=== PATIENT | female | born 1990 | race African-American/Black ===

== ENCOUNTER 2017-05-26 14:41 | Emergency (ER) | payer OTHER ==
[~2017-05-26 14:41] MED LIST: IBUP-232 PO; MACR100C2 PO
[2017-05-26 14:42] VITALS: BP 124/70; PULSE 94; RESP 16; TEMP 98.7; O2SAT 98
--- NOTE | 2017-05-26 15:23 | PD ---
HPI Chief Complaint: GI Complaint Time Seen by Provider: 15:00 Travel History International Travel<30 days: No Contact w/Intl Traveler<30days: No Traveled to known affect area: No History of Present Illness HPI 26-year-old A1 approximately 9 week female presents to the emergency room for evaluation of fatigue, dizziness, nausea, and vomiting for the past 2 weeks. Patient has had several positive home tests. Denies any fever, chills, upper respiratory symptoms, cramping, abdominal pain, vaginal discharge, or vaginal bleeding. She is not currently taking any medications. Denies any chronic medical conditions. PFSH Past Medical History Asthma: Yes Autoimmune Disease: No Blood Disorders: No Anxiety: No Depression: No Heart Rhythm Problems: No Cancer: No Cardiovascular Problems: No Chest Pain: No Cystic Fibrosis: No Diabetes: No Diminished Hearing: No Endocrine: No Gastrointestinal Disorders: No Genitourinary: No Headaches: Yes Hepatitis: No Hiatal Hernia: No Hypertension: No Immune Disorder: No Medical other: No Musculoskeletal: No Neurologic: Yes (MILD CONCUSSION 06/13 A/A; OCC. HEADACHES) Psychiatric: No Reproductive: No Respiratory: Yes Immunizations Current: Yes Seizures: No Sickle Cell Disease: No Sleep Apnea: No Thyroid Disease: No Tetanus Vaccination: > 5 Years ?: : 5 Para: 4 Miscarriage: 0 : 1 Ectopic : Yes (JUNE 2014) Ovarian Cysts: No Past Surgical History Abdominal Surgery: No AICD: No Body Medical Devices: N/A Cardiac Surgery: No Ear Surgery: No Endocrine Surgery: No Eye Surgery: No Genitourinary Surgery: No Gynecologic Surgery: No Joint Replacement: No Neurologic Surgery: No Oral Surgery: No Pacemaker: No Thoracic Surgery: No Other Surgery: Yes Social History Alcohol Use: No Tobacco Use: Yes (marijuana use) Substance Use: No Allergies-Medications (Allergen,Severity, Reaction): Coded Allergies: No Known Allergies (Verified , 06/22/16) Reported Meds & Prescriptions Reported Meds & Active Scripts Active Ibuprofen 600 Mg Tab 600 Mg PO Q6H PRN Macrobid (Nitrofurantoin Monoh/Nitrofur Macro) 100 Mg Cap 100 Mg PO BIDPC Review of Systems Except as stated in HPI: all other systems reviewed are Neg Physical Exam Narrative GENERAL: Well-nourished, well-developed female in no acute distress. Afebrile. Ambulatory. SKIN: Focused skin assessment warm/dry. HEAD: Normocephalic. EYES: No scleral icterus. No injection or drainage. NECK: Supple, trachea midline. No JVD or lymphadenopathy. CARDIOVASCULAR: Regular rate and rhythm without murmurs, gallops, or rubs. RESPIRATORY: Breath sounds equal bilaterally. No accessory muscle use. GASTROINTESTINAL: Abdomen soft, non-tender, nondistended. Data Data Last Documented VS Vital Signs Date Time Temp Pulse Resp B/P (MAP) Pulse Ox O2 Delivery O2 Flow Rate FiO2 05/26/17 14:42 98.7 94 16 124/70 (88) 98 Room Air Orders Orders Complete Blood Count With Diff (05/26/17 15:12) Basic Metabolic Panel (Bmp) (05/26/17 15:12) Urinalysis - C+S If Indicated (05/26/17 15:12) Ed Urine Pregnancytest Poc (05/26/17 15:12) Urine Culture (05/26/17 15:00) Labs Laboratory Tests Test 05/26/17 15:00 White Blood Count 7.0 TH/MM3 Red Blood Count 4.47 MIL/MM3 Hemoglobin 12.4 GM/DL Hematocrit 37.8 % Mean Corpuscular Volume 84.7 FL Mean Corpuscular Hemoglobin 27.9 PG Mean Corpuscular Hemoglobin Concent 32.9 % Red Cell Distribution Width 13.3 % Platelet Count 170 TH/MM3 Mean Platelet Volume 10.5 FL Neutrophils (%) (Auto) 63.6 % Lymphocytes (%) (Auto) 23.6 % Monocytes (%) (Auto) 10.2 % Eosinophils (%) (Auto) 2.2 % Basophils (%) (Auto) 0.4 % Neutrophils # (Auto) 4.4 TH/MM3 Lymphocytes # (Auto) 1.6 TH/MM3 Monocytes # (Auto) 0.7 TH/MM3 Eosinophils # (Auto) 0.2 TH/MM3 Basophils # (Auto) 0.0 TH/MM3 CBC Comment DIFF FINAL Differential Comment Urine Color YELLOW Urine Turbidity HAZY Urine pH 6.5 Urine Specific [place] 1.026 Urine Protein 30 mg/dL Urine Glucose (UA) NEG mg/dL Urine Ketones TRACE mg/dL Urine Occult Blood NEG Urine Nitrite NEG Urine Bilirubin NEG Urine Urobilinogen 2.0 MG/DL Urine Leukocyte Esterase LARGE Urine RBC 2 /hpf Urine WBC 26 /hpf Urine Squamous Epithelial Cells 8 /hpf Urine Amorphous Sediment RARE Urine Bacteria MANY /hpf Urine Mucus MANY /lpf Microscopic Urinalysis Comment CULTURE INDICATED MDM Medical Decision Making Medical Screen Exam Complete: Yes Emergency Medical Condition: Yes Medical Record Reviewed: Yes Differential Diagnosis , gastroenteritis, UTI, electrolyte abnormality Narrative Course 26-year-old A1 actually 9 week female presents to the emergency room for evaluation of dizziness, nausea, and vomiting for the past 2 weeks. She has had several positive home tests. She denies any vaginal discharge, bleeding, or pelvic cramping. Bedside ultrasound shows single active intrauterine with a heart rate of 160 bpm. Abdomen soft, nontender. Patient does not appear dehydrated. CBC and CMP are unremarkable. UA shows evidence of UTI. Symptoms are likely secondary to . Patient discharged with prescription for Macrobid and told to follow-up with OB or return for worsening symptoms. She understands and agrees to plan. Diagnosis Primary Impression: Qualified Codes: Z3A.09 - 9 weeks gestation of Additional Impression: UTI (urinary tract infection) Qualified Codes: N30.00 - Acute cystitis without hematuria Referrals: Order Manager Additional Instructions: Rest and drink plenty of fluids. Stop smoking. Start vitamins. Follow-up with sumo wrestler. Return to the emergency room for worsening symptoms. Med/Other Pt SpecificInfo: Prescription(s) given Scripts Nitrofurantoin Monohydrate Macrocrystals (Macrobid) 100 Mg Capsule 100 MG PO BID for Infection for 7 Days, #14 CAP 0 Refills Prov: Luis Hubbard MD 05/26/17 Disposition: DISCHARGE HOME Condition: Stable Tiana Dan May 26, 2017 15:23
[2017-05-26 15:51] LABS: AUTOMATED NEUTROPHIL # 4.4 TH/MM3 (1.8-7.7); BASOPHIL % 0.4 % (0.0-2.0); EOSINOPHIL # 0.2 TH/MM3 (0-0.4); EOSINOPHIL % 2.2 % (0.0-4.0); HEMATOCRIT 37.8 % (35.0-46.0); HEMO FLAGS DIFF FINAL; LYMPH % 23.6 % (9.0-44.0); LYMPHOCYTE # 1.6 TH/MM3 (1.0-4.8); MEAN CELL VOLUME 84.7 FL (80.0-100.0); MEAN CORPUSCULAR HEMOGLOBIN 27.9 PG (27.0-34.0); MEAN CORPUSCULAR HGB CONC 32.9 % (32.0-36.0); MONO % 10.2 % (0.0-8.0); NEUT % 63.6 % (16.0-70.0); PLATELET COUNT 170 TH/MM3 (150-450); RED BLOOD COUNT 4.47 MIL/MM3 (4.00-5.30); RED CELL DISTRIBUTION WIDTH 13.3 % (11.6-17.2)
[2017-05-26 15:52] LABS: BACTERIA, URINE MANY /hpf; BLOOD, URINE NEG (NEG); COMMENT (UR) CULTURE INDICATED; CULTURE IF INDICATED CULTURE INDICATED; GLUCOSE,URINE NEG (NEG); KETONE, URINE TRACE mg/dL (NEG); MUCUS URINE MANY /lpf (OCC); NITRITE,URINE NEG (NEG); PH, URINE 6.5 (5.0-8.5); SQUAMOUS EPITHELIAL CELL URINE 8 /hpf (0-5); URINE COLOR YELLOW (YELLW/STRAW)
[2017-05-26] MEDS ORDERED: MACR100C2 PO (15:56)
[2017-05-26 16:08] LABS: BICARBONATE 22.1 MEQ/L (21.0-32.0); POTASSIUM 3.5 MEQ/L (3.5-5.1)
== END 2017-05-26 16:07 | disposition home or self-care (01) ==
LOC: NEPD 14:41
DX: O23.11 Infections of bladder in pregnancy, first trimester (principal); B96.20 Unspecified Escherichia coli [E. coli] as the cause of diseases classified elsewhere; Z16.11 Resistance to penicillins; Z3A.09 9 weeks gestation of pregnancy
CPT/HCPCS: 80048; 81001; 84703; 85025; 87077; 87086; 87186; 99284

== ENCOUNTER 2017-07-06 14:40 | Emergency (ER) | payer MEDICAID, OTHER ==
[2017-07-06 14:53] VITALS: BP 114/63; PULSE 91; RESP 16; TEMP 98.6; O2SAT 98
--- NOTE | 2017-07-06 20:09 | PD ---
HPI Chief Complaint: Abdominal Pain Time Seen by Provider: 15:17 Travel History International Travel<30 days: No Contact w/Intl Traveler<30days: No Traveled to known affect area: No History of Present Illness HPI Pt is a 27-year-old female presenting to the emergency department with several medical complaints. Patient presents with complaint of with nasal congestion, rhinitis, SOB, sharp abdominal pain in the RLQ. Pt is , unsure how far along. No care yet. No vaginal bleeding or discharge. +N/V. Patient's symptoms started a few days ago. Onset was gradual. There are no alleviating or exacerbating factors. She denies any fever, chills, chest pain, headache. PFSH Past Medical History Asthma: Yes Autoimmune Disease: No Blood Disorders: No Anxiety: No Depression: No Heart Rhythm Problems: No Cancer: No Cardiovascular Problems: No Chest Pain: No Cystic Fibrosis: No Diabetes: No Diminished Hearing: No Endocrine: No Gastrointestinal Disorders: No Genitourinary: No Headaches: Yes Hepatitis: No Hiatal Hernia: No Hypertension: No Immune Disorder: No Musculoskeletal: No Neurologic: Yes (MILD CONCUSSION 06/13 A/A; OCC. HEADACHES) Psychiatric: No Reproductive: No Respiratory: Yes Immunizations Current: Yes Seizures: No Sickle Cell Disease: No Sleep Apnea: No Thyroid Disease: No ?: LMP: March : 5 Para: 4 Miscarriage: 0 : 1 Ectopic : Yes (JUNE 2014) Ovarian Cysts: No Past Surgical History Abdominal Surgery: No AICD: No Body Medical Devices: N/A Cardiac Surgery: No Ear Surgery: No Endocrine Surgery: No Eye Surgery: No Genitourinary Surgery: No Gynecologic Surgery: No Joint Replacement: No Neurologic Surgery: No Oral Surgery: No Pacemaker: No Thoracic Surgery: No Other Surgery: Yes Social History Alcohol Use: No Tobacco Use: Yes (marijuana use) Substance Use: No Allergies-Medications (Allergen,Severity, Reaction): Coded Allergies: No Known Allergies (Verified , 06/22/16) Reported Meds & Prescriptions Reported Meds & Active Scripts Active Macrobid (Nitrofurantoin Monohydrate Macrocrystals) 100 Mg Capsule 100 Mg PO BID 7 Days Ibuprofen 600 Mg Tab 600 Mg PO Q6H PRN Macrobid (Nitrofurantoin Monoh/Nitrofur Macro) 100 Mg Cap 100 Mg PO BIDPC Review of Systems Except as stated in HPI: all other systems reviewed are Neg General / Constitutional: No: Fever, Chills HENT: Positive: Congestion Cardiovascular: No: Chest Pain or Discomfort Respiratory: Positive: Cough, Shortness of Breath Gastrointestinal: Positive: Nausea, Vomiting, Abdominal Pain Genitourinary: No: Dysuria Musculoskeletal: No: Myalgias Physical Exam Narrative GENERAL: Well-developed, well-nourished, alert female. In no acute distress. SKIN: Warm and dry. HEAD: Normocephalic. EYES: No scleral icterus. No injection or drainage. CARDIOVASCULAR: Regular rate RESPIRATORY: No increased work of breathing, No accessory muscle use. Data Data Last Documented VS Vital Signs Date Time Temp Pulse Resp B/P (MAP) Pulse Ox O2 Delivery O2 Flow Rate FiO2 07/06/17 14:53 98.6 91 16 114/63 (80) 98 Orders MDM Medical Decision Making Medical Screen Exam Complete: Yes Emergency Medical Condition: Yes Interpretation(s) Vital Signs Date Time Temp Pulse Resp B/P (MAP) Pulse Ox O2 Delivery O2 Flow Rate FiO2 07/06/17 14:53 98.6 91 16 114/63 (80) 98 Differential Diagnosis Viral syndrome versus appendicitis versus ectopic versus UTI versus other Narrative Course Patient is a 27-year-old female presenting to emergency department for evaluation of cold and flulike symptoms. Additionally she presents complaining of lower abdominal pain. Patient is , uncertain as to how far along. Vital signs are stable. Patient was protocol in triage. Awaiting bed placement Patient was called to be placed in a room and was not in the emergency department. Diagnosis Primary Impression: Left against medical advice Kay Pagan Jul 06, 2017 20:09
[2017-07-07] MEDS ORDERED: ZOFR4TAB3 SL (12:42)
[2017-07-07] MEDS ORDERED: ALBUAER3 INH (12:42)
[2017-07-07] MEDS ORDERED: FLUTI44I INH (12:48)
== END 2017-07-06 20:46 | disposition left against medical advice (07) ==
LOC: NED 14:40
DX: R10.30 Lower abdominal pain, unspecified (principal); R05 Cough; R06.02 Shortness of breath; R11.2 Nausea with vomiting, unspecified; R09.81 Nasal congestion; J45.909 Unspecified asthma, uncomplicated; Z79.899 Other long term (current) drug therapy
CPT/HCPCS: 99281

== ENCOUNTER 2017-07-07 11:21 | Emergency (ER) | payer MEDICAID ==
[2017-07-07] MEDS ORDERED: RESP: ALBUTEROL 2.5 MG/3 ML NEB (PRN) NEB (12:00)
[2017-07-07] MEDS ORDERED: predniSONE 20 MG TAB PO ONE (12:00)
[2017-07-07] MEDS ORDERED: RESP: ALBUTEROL 2.5 MG/IPRATROPIUM 0.5 MG NEB (SCH) NEB (12:00)
--- NOTE | 2017-07-07 12:34 | PD ---
HPI Chief Complaint wheezing Date Seen: Jul 07, 2017 Travel History International Travel<30 Days: No Contact w/Intl Traveler<30Days: No History of Present Illness HPI Ms. Nicole is a 27 yo at ~16 weeks who presents with shortness of breath. [Per EMR review, patient last seen at ED yesterday, 07/06, for nasal congestion, rhinitis, SOB, abdominal pain. Patient had left ED prior to full evaluation] Patient reports that she began feeling short of breath over the past several days in association with a cold, she became very short of breath and wheezing this morning when she ran out of her Albuterol inhaler today. Patient generally has not needed to use Albuterol frequently, but gets exacerbations with weather changes. Patient has had some worsening of respiratory function with her 3rd also. She recalls being on an unspecified daily inhaled ?steroid with her third but not recently. No fevers. Some cough; no productive sputum. Patient also has abdominal pain in her L mid abdomen; it is sharp and she feels the need to tense her abdominal muscles. Pain has been present for the past few months since the onset of ; it happens generally every day for ~1 minute at a time. Patient has also had vomiting yesterday; she has felt dehydrated. Patient has not had similar symptoms with prior gestations. Patient has had some headaches and "heat flashes"; no headaches. Patient had some spotting recently ~2 weeks ago; she has not since had spotting. Patient also reports recent treatment for UTI. Patient also has concerns about prior tubal ; she had R fallopian tubes removed in ~ 2014. No new recent sexual partners. Patient will see [facility] OB provider the end of this month. Weeks Gestation: 16 Para: 4 : 6 Miscarriage: 1 History Past Medical History Narrative Medical Ectopic pregnacy s/p R tubes removed ~2014 Asthma Obstetric History Obstetric History 4 vaginal deliveries; 1 was (~29 weeks) Past Surgical History Narrative Surgical R fallopian tubes removed ~2014 Family History Narrative Family History labors Social History Narrative Social History Just stopped smoking cigarettes No alcohol No marijuana (was previously in EMR) Allergies-Medications (Allergen,Severity, Reaction): Coded Allergies: No Known Allergies (Verified , 06/22/16) Home Meds Active Scripts Ondansetron Odt (Zofran Odt) 4 Mg Tab, 4 MG SL Q8HR Y for Nausea/Vomiting, #30 TAB 0 Refills Prov:Valdez Kearns MD, R3 07/07/17 Albuterol 8.5 GM Inh (Proair Hfa 8.5 GM Inh) 90 Mcg/Act Aer, 2 PUFF INH Q4-6H Y for SHORTNESS OF BREATH, #1 INHALER 0 Refills 108 mcg/actuation Prov:Valdez Kearns MD, R3 07/07/17 Nitrofurantoin Monohydrate Macrocrystals (Macrobid) 100 Mg Capsule, 100 MG PO BID for Infection for 7 Days, #14 CAP 0 Refills Prov:Luis Hubbard MD 05/26/17 Ibuprofen (Ibuprofen) 600 Mg Tab, 600 MG PO Q6H Y for CRAMPING, #60 TAB 0 Refills Prov:Torres Perez MD, R3 06/24/16 Nitrofurantoin Monohydrate Macrocrystals (Macrobid) 100 Mg Cap, 100 MG PO BIDPC , #10 CAP 0 Refills Prov:Torres Perez MD, R3 06/24/16 Review of Systems General / Constitutional: No: Fever, Chills Eyes: No: Blurred Vision HENT: Headaches Cardiovascular: No: Chest Pain or Discomfort Respiratory: Cough, Short of Breath Gastrointestinal: Vomiting, Abdominal Pain (L sided) Genitourinary: No: Urgency, Dysuria Skin: No Rash Psychiatric: No: Anxiety, Depression Physical Exam afebrile 111/80 HR 90 RR 24 Normal O2 sat Narrative GENERAL: Well-nourished, well-developed patient. SKIN: Warm and dry. HEAD: Normocephalic and atraumatic. EYES: No scleral icterus. No injection or drainage. ENT: No nasal drainage noted. Mucous membranes pink. Airway patent. CARDIOVASCULAR: Regular rate and rhythm without murmurs. RESPIRATORY: Wheezing; mild tachypnea prior to breathing treatment; patient breathing w/o wheezing after Duoneb treatment EXTREMITIES: No cyanosis or edema. BACK: Nontender without obvious deformity. No CVA tenderness. NEUROLOGICAL: Awake and alert. Motor and sensory grossly within normal limits. Five out of 5 muscle strength in all muscle groups. Normal speech. ABDOMEN/GI: Abdomen soft, non-tender, bowel sounds present, no rebound, no guarding FHT's: 150's Data Data Orders Orders Albuterol Neb (Albuterol Neb) (07/07/17 12:00) Albuterol-Ipratropium Neb (Duoneb Neb) (07/07/17 12:00) Prednisone (Deltasone) (07/07/17 12:00) MDM Medical Record Reviewed: Yes Narrative Course / MDM 27 yo at ~16 weeks who presents with shortness of breath. -VS: mild tachypnea, RR 24. Otherwise normal VS and O2 sat -Wheezing on exam bilaterally -Abdominal pain daily for a few seconds for the past 3 months -Abdominal exam benign -FHR 150's -Recent nausea/vomiting; drinking Power aid well Plan: -Due to wheezing on exam, will give patient Duoneb treatment; will also administer oral Prednisone if needed Interval: -Patient's wheezing resolved; RR also <20 after Duoneb treatment x1 Updated Plan: -Discussed with patient that her asthma may be exacerbated by current ; will provide patient with Albuterol inhaler refill as well as daily oral steroid to be used until she is able to see her continuity OB provider in ~2 weeks. -Discussed with patient that since her abdominal pain has been present for a few seconds a day for the past 2-3 months and she has reassuring vital signs and exam, her abdominal pain is not due to an ectopic (patient has some anxiety about repeat ectopic ) -Patient given information regarding [facility]; patient will follow-up with OB provider in the next several weeks or sooner if any repeat wheezing or worsening of abdominal pain -Will provide patient with Zofran prescription; patient will take and return to ED with any worsening nausea/vomiting or new symptoms Diagnosis Diagnosis: Primary Impression: Asthma Additional Impression: Abdominal pain Disposition: 01 DISCHARGE HOME Condition: Stable Scripts Fluticasone 10.6 GM Inh (Flovent Hfa 10.6 GM Inh) 44 Mcg/Act Inh 2 PUFF INH DAILY for Asthma Management, #1 INHALER 0 Refills Use daily at the same time. Prov: Valdez Kearns MD, R3 07/07/17 Ondansetron Odt (Zofran Odt) 4 Mg Tab 4 MG SL Q8HR Y for Nausea/Vomiting, #30 TAB 0 Refills Prov: Valdez Kearns MD, R3 07/07/17 Albuterol 8.5 GM Inh (Proair Hfa 8.5 GM Inh) 90 Mcg/Act Aer 2 PUFF INH Q4-6H Y for SHORTNESS OF BREATH, #1 INHALER 0 Refills 108 mcg/actuation Prov: Valdez Kearns MD, R3 07/07/17 Patient Instructions: Abdominal Pain in (ED), General Instructions Valdez Kearns MD, R3 Jul 07, 2017 12:34
[2017-07-07] MEDS ORDERED: ZOFR4TAB3 SL (12:42)
[2017-07-07] MEDS ORDERED: ALBUAER3 INH (12:42)
[2017-07-07] MEDS ORDERED: FLUTI44I INH (12:48)
== END 2017-07-07 13:45 | disposition home or self-care (01) ==
LOC: HOBED 11:21
DX: O26.892 Other specified pregnancy related conditions, second trimester (principal); R10.9 Unspecified abdominal pain; Z3A.16 16 weeks gestation of pregnancy
CPT/HCPCS: 94664; 99284